=== PATIENT | male | born 1970 | race Caucasian/White ===

== ENCOUNTER 2023-06-04 17:06 | Emergency (ER) | payer OTHER, SELFPAY ==
[2023-06-04 17:10] VITALS: BP 110/78; PULSE 96; TEMP 36.4; O2SAT 96; BMI 27.3
--- NOTE | 2023-06-04 17:20 | ED_ITS ---
Documented by User: KRISTIN Sepulveda 06/04/23 18:12 HPI HPI - Neck Pain/Injury General Chief Complaint: Neck Pain/Injury Stated Complaint: NECK PAIN Time Seen by Provider: 06/04/23 17:07 Source: patient Mode of arrival: walk-in Limitations: no limitations History of Present Illness HPI Narrative: Patient is a 53-year-old male who presents to the emergency department for pain in the left side of the neck radiating to the left arm for the last week. He was seen in urgent care 4 days ago, no imaging was performed and he was discharged home with a Medrol Dosepak and Flexeril. [facility] report shows the patient takes 10 mg [place] 6 times a day. He reports no relief with any of these medications. He states pain is located in the left paraspinal area of the cervical spine, significantly worse with movement with pain radiation into the shoulder and arm. He denies any numbness or tingling. He has no direct injury or falls, he is unsure what may have precipitated this. He is a diabetic. Related Data Previous Rx's ?Medication ?Instructions ?Recorded ketorolac 10 mg tablet 10 mg PO TID PRN pain #10 tabs 06/04/23 orphenadrine citrate 100 mg 100 mg PO BID PRN muscle pain #14 06/04/23 tablet,extended release tabs Allergies Allergy/AdvReac Type Severity Reaction Status Date / Time No Known Drug Allergies Allergy Verified 06/04/23 17:09 Opioid HPI Opioid Management Most Recent Opioid Data: Last APR Pain Assessment 06/04/23 17:46 Review of Systems ROS Constitutional Denies: fever or chills Ears, nose, mouth, and throat Reports: neck pain; Denies: throat pain or nasal congestion Cardiovascular Denies: chest pain Respiratory Denies: shortness of breath or cough Gastrointestinal Denies: nausea or vomiting Musculoskeletal Reports: neck pain, extremity pain and limited range of motion; Denies: back pain, extremity swelling or joint pain Integumentary/Breast Denies: rash Neurological Denies: headache, numbness in extremities or weakness in extremities Endocrine Denies: excessive urination Hematologic/Lymphatic Denies: easy bruising or easy bleeding Exam Narrative Exam Narrative: Gen.: Awake, alert, in no distress Head: Normocephalic, atraumatic ENT: Moist mucous membranes, Tenderness of the left paraspinal area of the cervical spine with no midline posterior tenderness of the cervical spine. No obvious deformity, pain with range of motion noted. 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, normal biceps tendon strength in the arm Psych: Normal mood and affect Neuro: No focal neuro deficit Skin: Warm, dry, intact Constitutional Vital Signs, click to edit/add: Last Vital Signs Temp 97.6 F 06/04/23 17:10 Pulse 96 H 06/04/23 17:10 Resp 18 06/04/23 17:10 BP 110/78 06/04/23 17:10 Pulse Ox 96 06/04/23 17:10 O2 Del Method Room Air 06/04/23 17:10 Course Vital Signs Vital signs: Vital Signs Temperature 97.6 F 06/04/23 17:10 Pulse Rate 96 H 06/04/23 17:10 Respiratory Rate 18 06/04/23 17:10 Blood Pressure 110/78 06/04/23 17:10 Pulse Oximetry 96 06/04/23 17:10 Oxygen Delivery Method Room Air 06/04/23 17:10 Temperature 97.6 F 06/04/23 17:10 Pulse Rate 96 H 06/04/23 17:10 Respiratory Rate 18 06/04/23 17:10 Blood Pressure 110/78 06/04/23 17:10 Pulse Oximetry 96 06/04/23 17:10 Oxygen Delivery Method Room Air 06/04/23 17:10 MDM - Neck Pain/Injury MDM Narrative Medical decision making narrative: CT of the cervical spine shows multilevel degenerative changes with no acute process. Patient will be treated for cervical radiculopathy for home with Toradol and Norflex, finished Medrol Dosepak and follow-up with PCP. Return to the ER if symptoms change or worsen Medical Records Attestation: I reviewed the patient's medical records. Imaging Data ct cervical: Attestation: I have reviewed the pertinent imaging results. Radiologist's impression: ITS Impressions Cervical Spine CT 06/04/23 17:33 IMPRESSION: 1. Moderate spondylosis at C5-C6 which in combination with mild retrolisthesis at that level results in [id number] spinal canal narrowing as well as moderate to severe right-sided and mild left-sided foraminal narrowing. 2. No acute fracture. Electronically authenticated by: FREEDOM ARREOLA Date: 06/04/2023 17:58 Discharge Plan Discharge Stand Alone Forms: Portal Instructions Chief Complaint: Neck Pain/Injury Clinical Impression: Acute neck pain, Cervical radiculopathy Patient Disposition: Home, Self-Care Time of Disposition Decision: 18:11 Condition: Good Prescriptions / Home Meds: New ketorolac 10 mg tablet 10 mg PO TID PRN (Reason: pain) Qty: 10 0RF orphenadrine citrate 100 mg tablet extended release 100 mg PO BID PRN (Reason: muscle pain) Qty: 14 0RF Print Language: Austrian Instructions: Cervical Radiculopathy (ED), Acute Neck Pain (ED) Referrals: ANDREAS NI [Primary Care Provider] - 1 week Documented by User: Joe Martines 06/04/23 18:16 HPI HPI - Neck Pain/Injury General Chief Complaint: Neck Pain/Injury Stated Complaint: NECK PAIN Time Seen by Provider: 06/04/23 17:07 Related Data Previous Rx's ?Medication ?Instructions ?Recorded ketorolac 10 mg tablet 10 mg PO TID PRN pain #10 tabs 06/04/23 orphenadrine citrate 100 mg 100 mg PO BID PRN muscle pain #14 06/04/23 tablet,extended release tabs Allergies Allergy/AdvReac Type Severity Reaction Status Date / Time No Known Drug Allergies Allergy Verified 06/04/23 17:09 Opioid HPI Opioid Management Most Recent Opioid Data: Last APR Pain Assessment 06/04/23 17:46 Exam Constitutional Vital Signs, click to edit/add: Last Vital Signs Temp 97.6 F 06/04/23 17:10 Pulse 96 H 06/04/23 17:10 Resp 18 06/04/23 17:10 BP 110/78 06/04/23 17:10 Pulse Ox 96 06/04/23 17:10 O2 Del Method Room Air 06/04/23 17:10 Course Vital Signs Vital signs: Vital Signs Temperature 97.6 F 06/04/23 17:10 Pulse Rate 96 H 06/04/23 17:10 Respiratory Rate 18 06/04/23 17:10 Blood Pressure 110/78 06/04/23 17:10 Pulse Oximetry 96 06/04/23 17:10 Oxygen Delivery Method Room Air 06/04/23 17:10 Temperature 97.6 F 06/04/23 17:10 Pulse Rate 96 H 06/04/23 17:10 Respiratory Rate 18 06/04/23 17:10 Blood Pressure 110/78 06/04/23 17:10 Pulse Oximetry 96 06/04/23 17:10 Oxygen Delivery Method Room Air 06/04/23 17:10 MDM - Neck Pain/Injury MDM Narrative Medical decision making narrative: CT of the cervical spine shows multilevel degenerative changes with no acute process. Patient will be treated for cervical radiculopathy for home with Toradol and Norflex, finished Medrol Dosepak and follow-up with PCP. Return to the ER if symptoms change or worsen For this patient encounter I reviewed the mid-level provider?s documentation, medical decision-making and treatment plan, and I personally spent time with this patient. Shared APC visit, physician attestation: [id number]: The visit was performed by both a physician and an APC. I performed all aspects of MDM as documented. - DO [facility] Data ct cervical: Radiologist's impression: ITS Impressions Cervical Spine CT 06/04/23 17:33 IMPRESSION: 1. Moderate spondylosis at C5-C6 which in combination with mild retrolisthesis at that level results in [id number] spinal canal narrowing as well as moderate to severe right-sided and mild left-sided foraminal narrowing. 2. No acute fracture. Electronically authenticated by: FREEDOM ARREOLA Date: 06/04/2023 17:58 Discharge Plan Discharge Stand Alone Forms: Portal Instructions Chief Complaint: Neck Pain/Injury Clinical Impression: Acute neck pain, Cervical radiculopathy Patient Disposition: Home, Self-Care Time of Disposition Decision: 18:11 Condition: Good Prescriptions / Home Meds: New ketorolac 10 mg tablet 10 mg PO TID PRN (Reason: pain) Qty: 10 0RF orphenadrine citrate 100 mg tablet extended release 100 mg PO BID PRN (Reason: muscle pain) Qty: 14 0RF Print Language: Austrian Instructions: Cervical Radiculopathy (ED), Acute Neck Pain (ED) Referrals: ANDREAS NI [Primary Care Provider] - 1 week
--- NOTE | 2023-06-04 17:33 | CT_ITS ---
[address] [address] Patient Name: CAROLINA CEDEÑO MRN: [id number] date: 1970 Sex: M Assigned Patient Location: ER Current Patient Location: Accession/Order Number: [id number] Exam Date: 06/04/2023 17:30 Report Date: 06/04/2023 17:58 At the request of: CAROLINE LOO Procedure: CT cervical spine wo con EXAM: CT cervical spine wo con; [id number] REASON FOR EXAM: cervical radiculopathy COMPARISON: None. TECHNIQUE: Helical CT images of the cervical spine were obtained without contrast. Multiplanar reformats generated at the scanner. Dose reduction technique used: Automated exposure control and/or adjustment of the mA and/or kV according to patient size and/or use of iterative reconstruction technique. FINDINGS: Note: Compared with contrast-enhanced CT exams, noncontrast images are less sensitive for detection of some types of vascular, solid organ, and soft tissue pathology. Alignment: Mild retrolisthesis of C5 on C6. Non degenerative osseous findings: -No suspicious osseous lesion. -No acute fracture. Cervical spine degenerative changes: C2-C3: -Disc: No significant height loss. -Osseous endplate: Osteophytic lipping -Facets: No significant arthropathy. -Osseous spinal canal narrowing: None. -Osseous neuroforaminal narrowing: None. C3-C4: -Disc: No significant height loss. -Osseous endplate: Osteophytic lipping. -Facets: Minimal bilateral arthropathy. -Osseous spinal canal narrowing: None. -Osseous neuroforaminal narrowing: None. C4-C5: -Disc: No significant height loss. -Osseous endplate: Osteophytic lipping. -Facets: Minimal left-sided arthropathy. -Osseous spinal canal narrowing: None. -Osseous neuroforaminal narrowing: None. C5-C6: -Disc: Mild disc height loss with a medium-sized posterior disc bulge -Osseous endplate: Moderate osteophytosis. -Facets: No osseous degenerative changes. -Spinal canal narrowing: [id number] -Osseous neuroforaminal narrowing: Moderate/severe on the right and mild on the left. C6-C7: -Disc: No significant height loss. -Osseous endplate: Mild osteophytosis -Facets: No osseous degenerative changes. -Osseous spinal canal narrowing: None. -Osseous neuroforaminal narrowing: None. C7-T1: -Disc: No significant height loss. -Osseous endplate: No osteophytosis. -Facets: No osseous degenerative changes. -Osseous spinal canal narrowing: None. -Osseous neuroforaminal narrowing: None. Paraspinous soft tissues: No significant abnormality. Visualized lung apices: Clear. CT/CT cervical spine wo con IMPRESSION: 1. Moderate spondylosis at C5-C6 which in combination with mild retrolisthesis at that level results in ipcv-gk-oykholoc spinal canal narrowing as well as moderate to severe right-sided and mild left-sided foraminal narrowing. 2. No acute fracture. Electronically authenticated by: FREEDOM ARREOLA Date: 06/04/2023 17:58
[2023-06-04] MEDS: ORPHENADRINE 60 MG/ 2 ML VIAL IM (17:46)
[2023-06-04] MEDS: KETOROLAC TROMETHAMINE 60 MG/2 ML VIAL IM (17:46)
[2023-06-04] MEDS: HYDROCODONE/ACET 5-325 MG TABLET 1 TAB PO (17:46)
== END 2023-06-04 18:27 | disposition home or self-care (01) ==
PROVIDERS: Emergency Provider Emergency Medicine; PCP Internal Medicine
DX: M54.12 Radiculopathy, cervical region (principal); M54.2 Cervicalgia
CPT/HCPCS: 72125; 96372; 99284

== ENCOUNTER 2023-06-06 17:49 | Emergency (ER) | payer OTHER, SELFPAY ==
[2023-06-06 17:55] VITALS: BP 128/91; PULSE 116; TEMP 36.8; O2SAT 96; BMI 27.3
[2023-06-06] MEDS: KETOROLAC TROMETHAMINE 30 MG/ML VIAL IM (18:34)
[2023-06-06] MEDS: ORPHENADRINE 60 MG/ 2 ML VIAL IM (18:37)
[2023-06-06] MEDS: HYDROCODONE/ACET 5-325 MG TABLET 1 TAB PO (18:38)
--- NOTE | 2023-06-06 21:47 | ED_ITS ---
HPI HPI - General Adult General Chief complaint: Neck Pain/Injury Stated complaint: Neck Pain Time Seen by Provider: 06/06/23 18:12 Source: patient Mode of arrival: walk-in Limitations: no limitations History of Present Illness HPI narrative: Patient is a 59-year-old male who is coming in complaining of ongoing pain since last . Patient had no injury last Sunday. Patient says that he woke up last , any pain to left side of his neck and radiation down into left arm. Patient had a CT of the cervical spine at that time that showed arthritic changes, spondylolysis, retrolisthesis, no acute findings and CT cervical spine breathing. Patient was educated on using ice, stretching and follow-up with PCP. Patient has follow-up with Dr. An, patient was referred to physical therapy and also to Dr. Fried from neurosurgery for possible MRI if needed. Patient is in chronic pain for other reasons. Patient has no significant headache. Patient has been using Flexeril and Lorcet a home for pain relief. Patient went to [facility] last evening for similar symptoms, was given 2 shots and discharge after CT was reviewed by the Emergency Room physician from last . Patient is coming back to the Emergency Room for a 3rd time secondary to pain. He is alternating ice and heat. He is doing no cervical stretching at home. Patient was due to go to physical therapy today and did not because he was sleeping. Patient is doing nothing to help himself at home with his pain, cervical spasm and torticollis. This education was done multiple times at bedside with patient and his . 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 . All systems are negative except as noted/marked. All systems reviewed and otherwise negative. . Nurses note and vital signs reviewed and patient is not hypoxic. General: The patient appears well and in Moderate distress secondary to pain. Patient is resting uncomfortably on cart. Patient is not toxic, lethargic, or listless Skin: Warm, dry, no pallor noted. There is no rash noted. No petechiae, purpura. Head: Normocephalic, atraumatic; Patient has no new midline cervical tenderness to palpation. Patient does have moderate left paracervical tenderness to palpation, patient has signs of left torticollis. Patient has no meningeal signs or symptoms. Patient has no nuchal rigidity. Eye: Normal conjunctiva, no drainage, EOMI. PERRL Ears, Nose, Mouth, and Throat: oral mucosa is moist. Nares patent. Mouth without vesicles. Patient has very poor dentition, none secondary signs of dental infe ction or intraoral pathology. Cardiovascular: Regular Rate and Rhythm, no murmur, gallop, rub Respiratory: Patient is in no distress, no accessory muscle use, lungs are clear to auscultation, no wheezing, rales or rhonchi Back: non-tender, no CVA tenderness bilaterally to percussion. No CT LS midline pain GI: soft, no tenderness Musculoskeletal: Patient has full range of motion of all of the extremities, no motor, sensory, or focal neurological deficits; Patient has full range of motion and movements of bilateral upper extremities, patient has full opposition of all fingers to his left hand, patient has no acute sensory or motor deficits to his left hand left upper extremity. Patient states he does have radiating cervical pain down C5 into his left arm, no paresthesias, no strokelike signs or symptoms. Neurological: A&O x3, normal speech Psychiatric: Cooperative Related Data Home Medications ?Medication ?Instructions ?Recorded ?Confirmed cyclobenzaprine 10 mg tablet 10 mg PO DAILY 06/06/23 06/06/23 dapagliflozin propanediol 5 mg 5 mg PO DAILY 06/06/23 06/06/23 tablet (Farxiga) hydrocodone 10 mg-acetaminophen 2 tab PO Q6H 06/06/23 06/06/23 325 mg tablet insulin degludec 100 unit/mL (3 20 unit subcut BEDTIME 06/06/23 06/06/23 mL) subcutaneous pen (Tresiba FlexTouch U-100 insulin) meloxicam 15 mg tablet 15 mg PO DAILY 06/06/23 06/06/23 methylprednisolone 4 mg tablets in 4 mg PO DAILY 06/06/23 06/06/23 a dose pack Previous Rx's ?Medication ?Instructions ?Recorded ketorolac 10 mg tablet 10 mg PO TID PRN pain #10 tabs 06/04/23 orphenadrine citrate 100 mg 100 mg PO BID PRN muscle pain #14 06/04/23 tablet,extended release tabs hydrocodone 5 mg-acetaminophen 325 1 tab PO Q4H PRN pain #10 tabs 06/06/23 mg tablet methocarbamol 500 mg tablet 500 mg PO Q8H PRN muscle pain #10 06/06/23 tabs Allergies Allergy/AdvReac Type Severity Reaction Status Date / Time No Known Drug Allergies Allergy Verified 06/04/23 17:09 Opioid HPI Opioid Management Most Recent Opioid Data: Last Pain Scale 2 06/06/23 18:38 Last MAR Pain Assessment 06/06/23 18:38 Exam Constitutional Vital Signs, click to edit/add: Last Vital Signs Temp 98.2 F 06/06/23 17:55 Pulse 116 H 06/06/23 17:55 Resp 20 06/06/23 17:55 BP 128/91 06/06/23 17:55 Pulse Ox 96 06/06/23 17:55 O2 Del Method Room Air 06/06/23 17:55 Course Vital Signs Vital signs: Vital Signs Temperature 98.2 F 06/06/23 17:55 Pulse Rate 116 H 06/06/23 17:55 Respiratory Rate 20 06/06/23 17:55 Blood Pressure 128/91 06/06/23 17:55 Pulse Oximetry 96 06/06/23 17:55 Oxygen Delivery Method Room Air 06/06/23 17:55 Temperature 98.2 F 06/06/23 17:55 Pulse Rate 116 H 06/06/23 17:55 Respiratory Rate 20 06/06/23 17:55 Blood Pressure 128/91 06/06/23 17:55 Pulse Oximetry 96 06/06/23 17:55 Oxygen Delivery Method Room Air 06/06/23 17:55 Medical Decision Making MDM Narrative Medical decision making narrative: 10-15min Was spent; 3 different times was spent on education on using ice and no heat, patient was Shown 8 different exercises that he can do at home 3-4 times a day to help with cervical stretching and torticollis. A copy of patient's CT report of the cervical spine was given to the patient and educated on the impressions of the CT findings. Patient was given Toradol, Norflex and one Rembrandt in the Emergency Room. Patient was given a short prescription for Rembrandt and Robaxin, because he is run out of his pain medication muscle relaxers at home. Patient fully understands that if he does not ice or stretching, he will not Better. Patient understands taken responsibility of making his physical therapy appointments. Education with and patient was in at bedside multiple times. Patient was very thankful for help, time spent on education, patient is right-hand at discharge and a significant thank you very much for my time and explain things very easily. Discharge Plan Discharge Stand Alone Forms: Portal Instructions Chief Complaint: Neck Pain/Injury Clinical Impression: Chronic pain, Cervical radiculopathy, Left torticollis Patient Disposition: Home, Self-Care Time of Disposition Decision: 18:51 Condition: Fair Prescriptions / Home Meds: New methocarbamol 500 mg tablet 500 mg PO Q8H PRN (Reason: muscle pain) Qty: 10 0RF hydrocodone-acetaminophen 5-325 mg tablet 1 tab PO Q4H PRN (Reason: pain) Qty: 10 0RF No Action cyclobenzaprine 10 mg tablet 10 mg PO DAILY dapagliflozin propanediol [Farxiga] 5 mg tablet 5 mg PO DAILY hydrocodone-acetaminophen 10-325 mg tablet 2 tab PO Q6H insulin degludec [Tresiba FlexTouch U-100] 100 unit/mL (3 mL) insulin pen 20 unit SUBCUT BEDTIME meloxicam 15 mg tablet 15 mg PO DAILY methylprednisolone 4 mg tablets,dose pack 4 mg PO DAILY ketorolac 10 mg tablet 10 mg PO TID PRN (Reason: pain) Qty: 10 0RF orphenadrine citrate 100 mg tablet extended release 100 mg PO BID PRN (Reason: muscle pain) Qty: 14 0RF Print Language: German Instructions: Spasmodic Torticollis (ED), Cervical Sprain (ED), Cervical Radiculopathy (ED), Neck Pain (ED) Additional Instructions: Do not use any more heat. Use ice 20 minutes on, 20 minutes off as discussed. Do cervical stretching exercises, 3 sets of 10, 8 different exercises that we discussed 3-4 times a day to help with stretching. Follow-up with PCP and Dr. Fried and your PCP Dr. Mcadams. Start doing cervical stretching exercises tonight along with ice. A few days of pain medication muscle laxer were given, but at length we discussed ice and stretching will help along with going to physical therapy that has been ordered for you already. Referrals: ANDREAS AN [Primary Care Provider] - 1 week Discharge Date/Time: 06/06/23 19:02
--- NOTE | 2023-06-07 09:58 | PC.NURSE ---
[facility] calls ER and reports pt is trying to fill a Rx for [place] and he had just filled something stronger and has a 30 day supply that should still be available. He also filled muscle relaxer and narcotic at [facility] in [place] and then presented with these [address] Jiménez to fill. Pharmacist and this teletypewriter operator feel that for the patient safety, these new rx's shouldn't be filled at this time. We both feel appropriate to hold rx's and fill when he runs out of the first or another option would be to have him return the previous prescription pills if they weren't working. Once old pills were returned then the Rx could be filled.
== END 2023-06-06 19:02 | disposition home or self-care (01) ==
PROVIDERS: Emergency Provider Emergency Medicine; PCP Internal Medicine
DX: M54.12 Radiculopathy, cervical region (principal); M43.6 Torticollis; G89.29 Other chronic pain; Z79.4 Long term (current) use of insulin; Z79.899 Other long term (current) drug therapy
CPT/HCPCS: 96372; 99284

== ENCOUNTER 2023-06-08 10:16 | Emergency (ER) | payer OTHER, SELFPAY ==
[2023-06-08 10:19] VITALS: BP 136/96; PULSE 107; TEMP 37.6; O2SAT 98; BMI 27.0
--- NOTE | 2023-06-08 10:51 | ED.NECK1 ---
HPI HPI - Neck Pain/Injury General Chief Complaint: Neck Pain/Injury Stated Complaint: NECK PAIN Time Seen by Provider: 06/08/23 10:25 Source: patient Mode of arrival: Wheelchair History of Present Illness HPI Narrative: 53-year-old male presents for neck pain. This is an ongoing issue for him and he has had several emergency department visits here in another hospital as well as his PCP and he is being scheduled with a neurologist. It is severe pain. He was prescribed 180 [place] tablets on May 23 and he states he has run out of them. No new symptoms. No fever or numbness or weakness in his extremities. Related Data Home Medications ?Medication ?Instructions ?Recorded ?Confirmed dapagliflozin propanediol 5 mg 5 mg PO DAILY 06/06/23 06/08/23 tablet (Farxiga) hydrocodone 10 mg-acetaminophen 2 tab PO Q6H 06/06/23 06/08/23 325 mg tablet insulin degludec 100 unit/mL (3 20 unit subcut BEDTIME 06/06/23 06/08/23 mL) subcutaneous pen (Tresiba FlexTouch U-100 insulin) meloxicam 15 mg tablet 15 mg PO DAILY 06/06/23 06/08/23 pregabalin 75 mg capsule 75 mg PO BID 06/08/23 06/08/23 tizanidine 4 mg tablet 4 mg PO Q6H PRN muscle spasticity 06/08/23 06/08/23 Previous Rx's ?Medication ?Instructions ?Recorded orphenadrine citrate 100 mg 100 mg PO BID PRN muscle pain #14 06/04/23 tablet,extended release tabs hydrocodone 5 mg-acetaminophen 325 1 tab PO Q4H PRN pain #10 tabs 06/06/23 mg tablet methocarbamol 500 mg tablet 500 mg PO Q8H PRN muscle pain #10 06/06/23 tabs etodolac 400 mg tablet 400 mg PO Q8H PRN pain #20 tabs 06/08/23 prednisone 10 mg tablet See Rx Instructions .Route 06/08/23 .COMPLEX #30 tabs Allergies Allergy/AdvReac Type Severity Reaction Status Date / Time No Known Drug Allergies Allergy Verified 06/04/23 17:09 Opioid HPI Opioid Management Most Recent Opioid Data: Last Pain Scale 2 06/06/23 18:38 Last MAR Pain Assessment 06/06/23 18:38 Review of Systems ROS Narrative A ten point review of systems is negative except as noted above. Exam Narrative Exam Narrative: Nurses note and vital signs reviewed and patient is not hypoxic. General: The patient appears in no apparent distress. Patient is laying on his left side on the examination cart Skin: Warm, dry, no pallor noted. There is no rash noted. Head: Normocephalic, atraumatic Eye: Normal conjunctiva, no drainage Ears, Nose, Mouth, and Throat: oral mucosa is moist. Nares patent. Neck has no mass or swelling Cardiovascular: Regular Rate and Rhythm Respiratory: Patient is in no distress, no accessory muscle use, lungs are clear to auscultation, no wheezing, rales or rhonchi Back: non-tender GI: Soft and nontender Musculoskeletal: The patient has no evidence of calf tenderness, no pitting edema, symmetrical pulses noted bilaterally Neurological: A&O, normal speech, upper and lower extremity strength intact Psychiatric: Cooperative Constitutional Vital Signs, click to edit/add: Last Vital Signs Temp 99.7 F 06/08/23 10:19 Pulse 107 H 06/08/23 10:19 Resp 20 06/08/23 10:19 BP 136/96 H 06/08/23 10:19 Pulse Ox 98 06/08/23 10:19 O2 Del Method Room Air 06/08/23 10:19 Course Vital Signs Vital signs: Vital Signs Temperature 99.7 F 06/08/23 10:19 Pulse Rate 107 H 06/08/23 10:19 Respiratory Rate 20 06/08/23 10:19 Blood Pressure 136/96 H 06/08/23 10:19 Pulse Oximetry 98 06/08/23 10:19 Oxygen Delivery Method Room Air 06/08/23 10:19 Temperature 99.7 F 06/08/23 10:19 Pulse Rate 107 H 06/08/23 10:19 Respiratory Rate 20 06/08/23 10:19 Blood Pressure 136/96 H 06/08/23 10:19 Pulse Oximetry 98 06/08/23 10:19 Oxygen Delivery Method Room Air 06/08/23 10:19 MDM - Neck Pain/Injury MDM Narrative Medical decision making narrative: I have reviewed his very recent CT of the C-spine which showed cervical spondylosis. He appears to have run out of his [place], he was prescribed 180 of those tablets approximately 15 days ago. He is given IM Toradol and Norflex here and prescribed etodolac and prednisone. The importance of follow-up with neurology was discussed thoroughly. Differential Diagnosis Differential diagnosis: Likely disc disorder of cervical region, cervical radiculopathy, torticollis, cervical spondylosis and strain of neck muscle Discharge Plan Discharge Stand Alone Forms: Portal Instructions Chief Complaint: Neck Pain/Injury Clinical Impression: Cervical spondylosis Patient Disposition: Home, Self-Care Time of Disposition Decision: 10:49 Condition: Good Mode of Transportation: Private Vehicle Prescriptions / Home Meds: New etodolac 400 mg tablet 400 mg PO Q8H PRN (Reason: pain) Qty: 20 0RF prednisone 10 mg tablet See Rx Instructions .ROUTE .COMPLEX Qty: 30 0RF Rx Instructions: 4 by mouth daily for three days then 3 by mouth daily for three days then 2 by mouth daily for three days then 1 by mouth daily for three days No Action dapagliflozin propanediol [Farxiga] 5 mg tablet 5 mg PO DAILY hydrocodone-acetaminophen 10-325 mg tablet 2 tab PO Q6H insulin degludec [Tresiba FlexTouch U-100] 100 unit/mL (3 mL) insulin pen 20 unit SUBCUT BEDTIME meloxicam 15 mg tablet 15 mg PO DAILY methocarbamol 500 mg tablet 500 mg PO Q8H PRN (Reason: muscle pain) Qty: 10 0RF hydrocodone-acetaminophen 5-325 mg tablet 1 tab PO Q4H PRN (Reason: pain) Qty: 10 0RF pregabalin 75 mg capsule 75 mg PO BID tizanidine 4 mg tablet 4 mg PO Q6H PRN (Reason: muscle spasticity) orphenadrine citrate 100 mg tablet extended release 100 mg PO BID PRN (Reason: muscle pain) Qty: 14 0RF Print Language: Bruneian Instructions: Chronic Neck Pain (DC) Additional Instructions: Follow-up with your PCP and neurologist Referrals: ANDREAS NI [Primary Care Provider] - 1 week
[2023-06-08] MEDS: KETOROLAC TROMETHAMINE 60 MG/2 ML VIAL IM (10:59)
[2023-06-08] MEDS: ORPHENADRINE 60 MG/ 2 ML VIAL IM (10:59)
== END 2023-06-08 11:08 | disposition home or self-care (01) ==
PROVIDERS: Emergency Provider Emergency Medicine; PCP Internal Medicine
DX: M47.812 Spondylosis without myelopathy or radiculopathy, cervical region (principal); Z79.899 Other long term (current) drug therapy; Z79.4 Long term (current) use of insulin
CPT/HCPCS: 96372; 99284

== ENCOUNTER 2023-09-19 10:48 | Emergency (ER) | payer OTHER, SELFPAY ==
[2023-09-19] VITALS (21 sets, daily range): BP systolic 116–151; BP diastolic 77–106; PULSE 97–138; TEMP 37; O2SAT 98–100; BMI 22.4
--- NOTE | 2023-09-19 10:54 | ECG_ITS ---
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
[2023-09-19] MEDS: 0.9 % SODIUM CHLORIDE 1,000 ML 1000 ML IV ×2 (11:08→12:32)
--- NOTE | 2023-09-19 11:09 | ED_ITS ---
HPI HPI - General Adult General Chief complaint: Weakness Stated complaint: WEAKNESS, PHYSICIAN REFERRAL Time Seen by Provider: 09/19/23 10:53 Source: patient Mode of arrival: walk-in Limitations: no limitations History of Present Illness HPI narrative: The patient is coming to the ER after he was already evaluated by his primary care doctor and sent over to us for evaluation, patient already have a history of MRSA infection of the left knee and apparently at that time he was treated fully for 16 weeks But 4 weeks ago he had undergone right knee replacement and last night he started having fever at night Patient was evaluated by his primary care doctor he was found to have a temperature of 102 and heart rate of 150 The patient denies any coughing , any shortness of breath any other complaints of abdominal pain nausea vomiting or any burning with urination Related Data Home Medications ?Medication ?Instructions ?Recorded ?Confirmed dapagliflozin propanediol 5 mg 5 mg PO DAILY 06/06/23 09/19/23 tablet (Farxiga) hydrocodone 10 mg-acetaminophen 2 tab PO Q6H 06/06/23 09/19/23 325 mg tablet aspirin 81 mg tablet,delayed 81 mg PO BID 09/19/23 09/19/23 release celecoxib 200 mg capsule 200 mg PO DAILY 09/19/23 09/19/23 insulin aspart U-100 100 unit/mL 10 unit subcut TID 09/19/23 09/19/23 (3 mL) subcutaneous pen (Novolog FlexPen U-100 Insulin aspart) omega-3 acid ethyl esters 1 gram 1 cap PO DAILY 09/19/23 09/19/23 capsule pregabalin 150 mg capsule 150 mg PO BID 09/19/23 09/19/23 Previous Rx's ?Medication ?Instructions ?Recorded hydrocodone 5 mg-acetaminophen 325 1 tab PO Q4H PRN pain #10 tabs 06/06/23 mg tablet etodolac 400 mg tablet 400 mg PO Q8H PRN pain #20 tabs 06/08/23 Allergies Allergy/AdvReac Type Severity Reaction Status Date / Time No Known Drug Allergies Allergy Verified 06/04/23 17:09 Opioid HPI Opioid Management Most Recent Opioid Data: Last Pain Scale 2 06/06/23 18:38 Review of Systems ROS Status of ROS 10 or more systems reviewed and unremark able except as noted in history and below Exam Narrative Exam Narrative: Nurses notes and vital signs reviewed and patient is not hypoxic. General: Well-appearing and in no apparent distress. Skin: Warm, dry, no pallor noted. No rash. Head: Normocephalic, atraumatic. Neck: Supple, non-tender. Eye: Pupils are equal, round and EOMI. No scleral icterus. Ears, Nose, Mouth, and Throat: TM are clear, no nasal mucosal hypertrophy. Oral mucosa is moist, no posterior oropharynx erythema, uvula is mid-line Cardiovascular: Regular Rate and Rhythm without murmur, gallop or rub. Respiratory: No accessory muscle use or respiratory distress. Lungs are clear to auscultation, no wheezing, rales or rhonchi Chest Wall: no tenderness Back: No midline thoracic or lumbar vertebral tenderness. No CVA tenderness Musculoskeletal: The patient have a edema of the right knee and the wound that healing for the right knee replacement, with no significant redness noted the only mild erythema noted at the distal end of the wound mostly laterally to the proximal tibia The patient does not have any fluctuation but he does have some effusion in the right knee there is no pocketing and the patient does not have any dehiscence of the wound that is observed GI: Abdomen is soft, non-distended. Normal bowel sounds. No masses appreciated. No tenderness to palpation. No rebound, guarding, or rigidity noted. Neurological: A&O x4. No cranial nerve dysfunction observed. No truncal ataxia. Moves all extremities. Sensation intact. Psychiatric: Cooperative and interactive. Normal mood and affect. Constitutional Vital Signs, click to edit/add: Last Vital Signs Temp 98.6 F 09/19/23 10:55 Pulse 133 H 09/19/23 10:55 Resp 09/19/23 10:55 BP 144/98 H 09/19/23 10:55 Pulse Ox 100 09/19/23 10:55 O2 Del Method Room Air 09/19/23 10:55 Course Vital Signs Vital signs: Vital Signs Temperature 98.6 F 09/19/23 10:55 Pulse Rate 133 H 09/19/23 10:55 Respiratory Rate 09/19/23 10:55 Blood Pressure 144/98 H 09/19/23 10:55 Pulse Oximetry 100 09/19/23 10:55 Oxygen Delivery Method Room Air 09/19/23 10:55 Temperature 98.6 F 09/19/23 10:55 Pulse Rate 133 H 09/19/23 10:55 Respiratory Rate 20 09/19/23 10:55 Blood Pressure 144/98 H 09/19/23 10:55 Pulse Oximetry 100 09/19/23 10:55 Oxygen Delivery Method Room Air 09/19/23 10:55 Medical Decision Making MDM Narrative Medical decision making narrative: EKG in the ER showing sinus tachycardia with a heart rate of [address] elevation or depression Patient was started on arrival of possible sepsis protocol with IV fluids as well as blood culture obtained and CBC and chemistry The patient lactic acid is elevated which is mostly secondary to sepsis Blood culture was obtained and the patient was started back on Zosyn X-ray of the right knee is obtained and pending And the patient CBC shows elevated neutrophil with no leukocytosis Patient provided with morphine 2 mg IV Mostly the patient will be transferred back to [facility] for further evaluation of possible infection Lab Data Labs: Lab Results 09/19/23 Range/Units 11:05 WBC 9.0 (4.0-11.0) 10^3/uL RBC 5.73 (4.70-6.10) 10^6/uL Hgb 15.1 (14.0-18.0) g/dL Hct 46.8 (42.0-54.0) % MCV 81.7 (80.0-94.0) fL MCH 26.4 (25.9-34.0) pg MCHC 32.3 (29.9-35.2) g/dL RDW 14.4 (11.0-15.0) % Plt Count 230 (150-450) 10^3/uL MPV 10.8 (9.5-13.5) fL Neut % (Auto) 83.1 H (43.0-75.0) % Lymph % (Auto) 8.7 L (20.5-60.0) % [place] % (Auto) 7.0 (1.7-12.0) % Eos % (Auto) 0.4 L (0.9-7.0) % Baso % (Auto) 0.4 (0.2-2.0) % Neut # (Auto) 7.5 H (1.4-6.5) 10^3/uL Lymph # (Auto) 0.8 L (1.2-3.8) 10^3/uL [place] # (Auto) 0.6 (0.3-0.8) 10^3/uL Eos # (Auto) 0.0 (0.0-0.7) 10^3/uL Baso # (Auto) 0.0 (0.0-0.1) 10^3/uL Abs Immat Gran (auto) 0.04 H (0.00-0.03) 10^3/uL Imm/Tot Granulo (auto) 0.4 (0.0-0.5) % Sodium 129 L (136-145) mmol/L Potassium 4.0 (3.5-5.1) mmol/L Chloride 91 L (98-107) mmol/L Carbon Dioxide 23.1 (21.0-32.0) mmol/L Anion Gap 18.9 BUN 11.0 (7.0-18.0) mg/dL Creatinine 1.20 (0.70-1.30) mg/dL Est GFR ( Amer) >60 (>=60) Est GFR (Non-Af Amer) >60 (>=60) BUN/Creatinine Ratio 9.2 Glucose 306 H (74-106) mg/dL Lactate 5.4 H* (0.4-2.0) mmol/L Calcium 9.7 (8.5-10.1) mg/dL Total Bilirubin 0.6 (0.2-1.0) mg/dL AST 20 (15-37) U/L ALT 21 (16-63) U/L Alkaline Phosphatase 125 H (46-116) U/L Total Protein 9.4 H (6.4-8.2) g/dL Albumin 3.6 (3.4-5.0) g/dL Globulin 5.8 g/dL Albumin/Globulin Ratio 0.6 Discharge Plan Discharge Patient Disposition: Still a Patient
[2023-09-19 11:25] LABS: Basophils Percent Auto 0.4 % (0.2-2.0); Eosinophils Percent Auto 0.4 % (0.9-7.0); Hematocrit 46.8 % (42.0-54.0); Hemoglobin 15.1 g/dL (14.0-18.0); Immature Granulocytes Abs Auto 0.04 10^3/uL (0.00-0.03); Immature Granulocytes Pct Auto 0.4 % (0.0-0.5); Lymphocytes Absolute Auto 0.8 10^3/uL (1.2-3.8); Lymphocytes Percent Auto 8.7 % (20.5-60.0); Mean Corpuscular HGB Conc 32.3 g/dL (29.9-35.2); Mean Corpuscular Hemoglobin 26.4 pg (25.9-34.0); Mean Corpuscular Volume 81.7 fL (80.0-94.0); Mean Platelet Volume 10.8 fL (9.5-13.5); Monocytes Absolute Auto 0.6 10^3/uL (0.3-0.8); Neutrophils Absolute Auto 7.5 10^3/uL (1.4-6.5); Neutrophils Percent Auto 83.1 % (43.0-75.0); Platelet Count 230 10^3/uL (150-450); Red Blood Count 5.73 10^6/uL (4.70-6.10); Red Cell Distribution Width 14.4 % (11.0-15.0)
[2023-09-19 11:31] LABS: Alanine Aminotransferase 21 U/L (16-63); Albumin Globulin Ratio 0.6; Albumin Level 3.6 g/dL (3.4-5.0); Alkaline Phosphatase 125 U/L (46-116); Anion Gap 18.9; Aspartate Amino Transferase 20 U/L (15-37); BUN Creatinine Ratio 9.2; Bilirubin Total 0.6 mg/dL (0.2-1.0); Calcium 9.7 mg/dL (8.5-10.1); Carbon Dioxide 23.1 mmol/L (21.0-32.0); Chloride 91 mmol/L (98-107); Estimated GFR (African America >60 (>=60); Estimated GFR (Non-African Ame >60 (>=60); Globulin 5.8 g/dL; Glucose 306 mg/dL (74-106); Sodium 129 mmol/L (136-145); Total Protein 9.4 g/dL (6.4-8.2)
[2023-09-19 11:39] LABS: Lactate/Lactic Acid 5.4 mmol/L (0.4-2.0)
--- NOTE | 2023-09-19 11:39 | XR_ITS ---
[address] [address] Patient Name: CAROLINA CEDEÑO MRN: [id number] date: 1970 Sex: M Assigned Patient Location: ER Current Patient Location: ED.MAIN Accession/Order Number: [id number] Exam Date: 09/19/2023 12:10 Report Date: 09/19/2023 12:31 At the request of: CLIVE HANCOCK Procedure: XR knee RT 3V PROCEDURE: XR knee RT 3V COMPARISON: None. HISTORY: infection concern FINDINGS: BONES:Total knee arthroplasty. No acute fracture, dislocation or mechanical failure. SOFT TISSUES:Negative. No visible soft tissue swelling. EFFUSION:Joint effusion OTHER: Negative. XR/XR knee RT 3V IMPRESSION: No acute fracture or mechanical failure Joint effusion Electronically authenticated by: SHAKIR GRIFFIN Date: 09/19/2023 12:31
[2023-09-19 11:46] LABS: INR 1.11; Prothrombin Time 11.6 sec (9.0-11.6)
[2023-09-19] MEDS: PIPERACILLIN SODIUM/TAZOBACTAM 4.5 GM in 0.9 % SODIUM CHLORIDE 50 ML IV (11:49)
[2023-09-19] MEDS: MORPHINE SULFATE 2 MG/ML SYRINGE IV (11:49)
[2023-09-19 12:29] LABS: Internal Control Within Normal Limits; SARS-CoV-2 Ag NEGATIVE (NEGATIVE)
[2023-09-19] MEDS: HYDROMORPHONE HCL 0.5 MG/0.5 ML SYRINGE IV (12:35)
[2023-09-19] MEDS: VANCOMYCIN HCL 1,000 MG in 0.9 % SODIUM CHLORIDE 250 ML 250 MG IV (12:35)
--- NOTE | 2023-09-19 12:54 | PC.NURSE ---
Dr Reis at patient's bedside informing him of transfer dt infection, sepsis. Son also at bedside. Pt requesting urinal. Denies any other needs
[2023-09-19] MEDS: HYDROMORPHONE HCL 1 MG/ML CARTRIDGE IV (13:27)
[2023-09-19] MEDS: 0.9 % SODIUM CHLORIDE 1,000 ML 500 ML IV (13:27)
[2023-09-19 14:53] LABS: Lactate/Lactic Acid 1.4 mmol/L (0.4-2.0)
== END 2023-09-19 15:20 | disposition short-term general hospital (02) ==
PROVIDERS: Emergency Provider Emergency Medicine; PCP Internal Medicine
DX: T84.53XA Infection and inflammatory reaction due to internal right knee prosthesis, initial encounter (principal); M00.9 Pyogenic arthritis, unspecified; E87.20 Acidosis, unspecified; Z86.14 Personal history of Methicillin resistant Staphylococcus aureus infection
CPT/HCPCS: 36415; 73562; 80053; 83605; 85025; 85610; 87040; 87811; 93005; 96365; 96367; 96375; 96376; 99285; J1170; J2270; J2543; J3370

== ENCOUNTER 2024-06-26 05:23 | Emergency (ER) | payer OTHER, SELFPAY ==
[2024-06-26] VITALS (22 sets, daily range): BP systolic 109–131; BP diastolic 76–87; PULSE 89; TEMP 37.1; O2SAT 95–99; BMI 25.1
--- NOTE | 2024-06-26 05:51 | PC.NURSE ---
complains of chronic right knee pain but during work this right knee pain increased. this patient states a year ago my knee went septic this patient shows no signs of distress
--- NOTE | 2024-06-26 05:58 | ED.GENADUL1 ---
HPI HPI - General Adult General Chief complaint: Weakness Stated complaint: LOWER EXTREMITY PAIN Time Seen by Provider: 06/26/24 05:48 Source: patient Mode of arrival: ambulance Limitations: no limitations History of Present Illness HPI narrative: right knee pain and weakness. IDDM. Describes multiple surgeries including antibiotic impregnated spacers. Last year the joint was septic. He has constant pain of the joint. left work this AM because of the pain. Also feels weak and concern he may have an infection. No fever or nausea or chills. Right knee is always enlarged. 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 states he got off due to the pain and weakness and 911 was called to bring him here. Related Data Home Medications ?Medication ?Instructions ?Recorded ?Confirmed aspirin 81 mg tablet,delayed 81 mg PO BID 09/19/23 09/19/23 release celecoxib 200 mg capsule 200 mg PO DAILY 09/19/23 09/19/23 dapagliflozin propanediol 10 mg 10 mg PO DAILY 09/19/23 09/19/23 tablet (Farxiga) insulin aspart U-100 100 unit/mL 10 unit subcut TIDWM 09/19/23 09/19/23 (3 mL) subcutaneous pen (Novolog FlexPen U-100 Insulin aspart) insulin glargine 100 unit/mL (3 10 unit subcut QAM 09/19/23 09/19/23 mL) subcutaneous pen (Lantus Solostar U-100 Insulin) morphine 30 mg tablet,extended 30 mg PO BID 09/19/23 09/19/23 release naloxone 4 mg/actuation nasal spray 1 spray intranasal Q5M PRN opioid 09/19/23 09/19/23 overdose omega-3 acid ethyl esters 1 gram 1 cap PO DAILY 09/19/23 09/19/23 capsule oxycodone 5 mg tablet 5 mg PO Q6H PRN pain 09/19/23 09/19/23 pregabalin 150 mg capsule 150 mg PO BID 09/19/23 09/19/23 Allergies Allergy/AdvReac Type Severity Reaction Status Date / Time No Known Drug Allergies Allergy Verified 06/26/24 05:30 Opioid HPI Opioid Management Most Recent Opioid Data: Last Pain Scale 8 06/26/24, 06:29 Last ED Pain Assessment 06/26/24, 05:50 Last MAR Pain Assessment 06/26/24, 06:29 Review of Systems ROS Status of ROS 10 or more systems reviewed and unremarkable except as noted in history and below [facility] Social History Little interest or pleasure in doing things: not at all Feeling down, depressed, or hopeless: not at all Exam Constitutional Vital Signs, click to edit/add: Last Vital Signs Temp 98.8 F 06/26/24 05:25 Pulse 89 06/26/24 05:25 Resp 18 06/26/24 05:25 BP 117/82 06/26/24 08:30 Pulse Ox 97 06/26/24 09:00 O2 Del Method Room Air 06/26/24 05:25 Common normals: no apparent distress, average body habitus, oriented x3, no limitations, healthy appearing, alert and well nourished [facility] Common normals: normocephalic and head/scalp atraumatic Eye Common normals: EOMs intact bilaterally and conjunctivae normal Respiratory Common normals: normal respiratory effort, no retractions, no use of accessory muscles and clear to auscultation bilaterally Cardio Common normals: regular rate, regular rhythm, S1 normal heart sound and S2 normal heart sound GI Common normals: Normal to inspection, nondistended, normoactive bowel sounds present and soft to palpation Extremity Other: well healed midline incision right knee. Knee enlarged and mod. tender. No warmth or erythema. ROM not tested. Left knee exam is neg Neuro Common normals: oriented x3, CN's II-XII intact bilaterally, moves all extremities and no focal motor deficits Psych Appearance: grossly normal Course Course Hospital Course: Patient's care is signed out to me at change of shift by Dr. Del Castillo who performed the initial evaluation. Patient complained of generally feeling ill. He states he has gotten that way in the past when he had septic arthritis in the right knee. He has had multiple surgeries in the right knee with revisions of his arthroplasty due to infection. He is currently on an unnamed antifungal and an unnamed antibiotic for the last couple months that he is to take for at least another 2 more months. His concern was if he was getting septic arthritis again. His workup has revealed a normal white count and normal CRP and he is not febrile. Venous Dopplers of the right leg also obtained and there is no DVT. X-rays did not reveal any fluid in the joint or other acute pathology. Patient was treated with IV morphine for pain in the ED and is advised outpatient early follow-up with his ID physician and orthopedist. He may return anytime for worsening symptoms. Vital Signs Vital signs: Vital Signs Temperature 98.8 F 06/26/24 05:25 Pulse Rate 89 06/26/24 05:25 Respiratory Rate 18 06/26/24 05:25 Blood Pressure 131/76 06/26/24 05:25 Pulse Oximetry 99 06/26/24 05:25 Oxygen Delivery Method Room Air 06/26/24 05:25 Temperature 98.8 F 06/26/24 05:25 Pulse Rate 89 06/26/24 05:25 Respiratory Rate 18 06/26/24 05:25 Blood Pressure 117/82 06/26/24 08:30 Pulse Oximetry 97 06/26/24 09:00 Oxygen Delivery Method Room Air 06/26/24 05:25 Medical Decision Making MDM Narrative Medical decision making narrative: patient describes many(up to 19 ) different surgeries right knee. septic joint last year. States he waited too long last year. Always has pain of the knee but felt the pain was worse this AM and he feels weak. Left work and came here for evaluation. No fever, tachycardia or other signs at this time to suggest sepsis. labs and xrays ordered. Morphine ordered for pain labs have returned and no findings to support sepsis or septic joint Lab Data Labs: Lab Results 06/26/24 06/26/24 Range/Units 05:34 05:40 WBC 7.9 (4.0-11.0) 10^3/uL RBC 4.98 (4.70-6.10) 10^6/uL Hgb 15.3 (14.0-18.0) g/dL Hct 43.0 (42.0-54.0) % MCV 86.3 (80.0-94.0) fL MCH 30.7 (25.9-34.0) pg MCHC 35.6 H (29.9-35.2) g/dL RDW 13.0 (11.0-15.0) % Plt Count 174 (150-450) 10^3/uL MPV 11.1 (9.5-13.5) fL Neut % (Auto) 57.9 (43.0-75.0) % Lymph % (Auto) 30.6 (20.5-60.0) % [place] % (Auto) 7.8 (1.7-12.0) % Eos % (Auto) 2.7 (0.9-7.0) % Baso % (Auto) 0.6 (0.2-2.0) % Neut # (Auto) 4.6 (1.4-6.5) 10^3/uL Lymph # (Auto) 2.4 (1.2-3.8) 10^3/uL [place] # (Auto) 0.6 (0.3-0.8) 10^3/uL Eos # (Auto) 0.2 (0.0-0.7) 10^3/uL Baso # (Auto) 0.1 (0.0-0.1) 10^3/uL Abs Immat Gran (auto) 0.03 (0.00-0.03) 10^3/uL Imm/Tot Granulo (auto) 0.4 (0.0-0.5) % Sodium 139 (136-145) mmol/L Potassium 3.8 (3.5-5.1) mmol/L Chloride 100 (98-107) mmol/L Carbon Dioxide 27.8 (21.0-32.0) mmol/L Anion Gap 15.0 BUN 12.0 (7.0-18.0) mg/dL Creatinine 0.98 (0.70-1.30) mg/dL Est GFR ( Amer) >60 (>=60 mL/min/1.73m^2) Est GFR (Non-Af Amer) >60 (>=60 mL/min/1.73m^2) BUN/Creatinine Ratio 12.2 Glucose 208 H (74-106) mg/dL Lactate 1.8 (0.4-2.0) mmol/L Calcium 9.1 (8.5-10.1) mg/dL Total Bilirubin 0.3 (0.2-1.0) mg/dL AST 17 (15-37) U/L ALT 34 (16-63) U/L Alkaline Phosphatase 137 H (46-116) U/L C-Reactive Protein <0.50 (<=0.50) mg/dL Total Protein 7.9 (6.4-8.2) g/dL Albumin 3.9 (3.4-5.0) g/dL Globulin 4.0 g/dL Albumin/Globulin Ratio 1.0 Urine Color Lt. yellow (YELLOW) Urine Clarity Clear (CLEAR) Urine pH 6.0 (5.0-9.0) Ur Specific [place] <=1.005 A (1.005-1.025) Urine Protein Negative (NEG/TRACE) mg/dL Urine Glucose (UA) >=1000 A (NEGATIVE) mg/dL Urine Ketones Negative (NEGATIVE) mg/dL Urine Occult Blood Negative (NEGATIVE) Urine Nitrite Negative (NEGATIVE) Urine Bilirubin Negative (NEGATIVE) Urine Urobilinogen 0.2 (0.2-1.0) EU/dL Ur Leukocyte Esterase Negative (NEGATIVE) Urine RBC 0-2 (0-2) #/HPF Urine WBC None seen (NONE SEEN) #/HPF Ur Squamous Epith Cells Rare (NONE/RARE) #/LPF Urine Crystals None seen (None Seen) #/HPF Urine Bacteria None seen (NONE SEEN) #/HPF Urine Casts None seen (NONE SEEN) #/LPF Urine Mucus None seen (NONE SEEN) Ur Culture Indicated? No Discharge Plan Discharge Chief Complaint: Weakness Clinical Impression: Chronic pain of right knee Patient Disposition: Home, Self-Care Time of Disposition Decision: 09:29 Condition: Good Mode of Transportation: Private Vehicle Prescriptions / Home Meds: No Action celecoxib 200 mg capsule 200 mg PO DAILY aspirin 81 mg tablet,delayed release (DR/EC) 81 mg PO BID insulin aspart U-100 [Novolog FlexPen U-100 Insulin] 100 unit/mL (3 mL) insulin pen 10 unit SUBCUT TIDWM omega-3 acid ethyl esters 1 gram capsule 1 cap PO DAILY pregabalin 150 mg capsule 150 mg PO BID dapagliflozin propanediol [Farxiga] 10 mg tablet 10 mg PO DAILY insulin glargine [Lantus Solostar U-100 Insulin] 100 unit/mL (3 mL) insulin pen 10 unit SUBCUT QAM morphine 30 mg tablet extended release 30 mg PO BID naloxone 4 mg/actuation spray,non-aerosol 1 spray INTRANASAL Q5M PRN (Reason: opioid overdose) oxycodone 5 mg tablet 5 mg PO Q6H PRN (Reason: pain) Print Language: Scottish Instructions: Chronic Pain (ED) Additional Instructions: Continue current medications. Follow-up with your infectious disease specialist and orthopedist within a week. Return for worsening symptoms. Referrals: ANDREAS NI [Primary Care Provider, Internal Medicine] - 1 week Discharge Date/Time: 06/26/24 09:36
[2024-06-26 06:14] LABS: Basophils Absolute Auto 0.1 10^3/uL (0.0-0.1); Basophils Percent Auto 0.6 % (0.2-2.0); Eosinophils Absolute Auto 0.2 10^3/uL (0.0-0.7); Eosinophils Percent Auto 2.7 % (0.9-7.0); Hemoglobin 15.3 g/dL (14.0-18.0); Immature Granulocytes Abs Auto 0.03 10^3/uL (0.00-0.03); Immature Granulocytes Pct Auto 0.4 % (0.0-0.5); Lymphocytes Absolute Auto 2.4 10^3/uL (1.2-3.8); Lymphocytes Percent Auto 30.6 % (20.5-60.0); Mean Corpuscular HGB Conc 35.6 g/dL (29.9-35.2); Mean Corpuscular Hemoglobin 30.7 pg (25.9-34.0); Mean Corpuscular Volume 86.3 fL (80.0-94.0); Mean Platelet Volume 11.1 fL (9.5-13.5); Monocytes Absolute Auto 0.6 10^3/uL (0.3-0.8); Monocytes Percent Auto 7.8 % (1.7-12.0); Neutrophils Absolute Auto 4.6 10^3/uL (1.4-6.5); Neutrophils Percent Auto 57.9 % (43.0-75.0); Platelet Count 174 10^3/uL (150-450); Red Blood Count 4.98 10^6/uL (4.70-6.10); White Blood Count 7.9 10^3/uL (4.0-11.0)
[2024-06-26 06:15] LABS: Bilirubin Urine NEGATIVE (NEGATIVE); Blood Urine NEGATIVE (NEGATIVE); Clarity Urine CLEAR (CLEAR); Color Urine LT. YELLOW (YELLOW); Glucose Urine UA >=1000 mg/dL (NEGATIVE); Ketones Urine NEGATIVE (NEGATIVE); Leukocyte Esterase Urine NEGATIVE (NEGATIVE); Nitrite Urine NEGATIVE (NEGATIVE); Protein Urine NEGATIVE (NEG/TRACE); Specific Gravity Urine <=1.005 (1.005-1.025); Urobilinogen Urine 0.2 EU/dL (0.2-1.0)
[2024-06-26 06:22] LABS: Bacteria Urine NONE SEEN #/HPF (NONE SEEN); Cast Seen? NONE SEEN #/LPF (NONE SEEN); Crystals Seen? None Seen #/HPF (None Seen); Mucus Urine NONE SEEN (NONE SEEN); RBC Urine 0-2 #/HPF (0-2); Squamous Epithelial Cell Urine RARE #/LPF (NONE/RARE); Urine Culture Indicated NO; WBC Urine NONE SEEN #/HPF (NONE SEEN)
[2024-06-26 06:27] LABS: Alanine Aminotransferase 34 U/L (16-63); Albumin Level 3.9 g/dL (3.4-5.0); Alkaline Phosphatase 137 U/L (46-116); Aspartate Amino Transferase 17 U/L (15-37); BUN Creatinine Ratio 12.2; Bilirubin Total 0.3 mg/dL (0.2-1.0); C Reactive Protein <0.50 mg/dL (<=0.50); Calcium 9.1 mg/dL (8.5-10.1); Carbon Dioxide 27.8 mmol/L (21.0-32.0); Chloride 100 mmol/L (98-107); Estimated GFR (African America >60 (>=60 mL/min/1.73m^2); Estimated GFR (Non-African Ame >60 (>=60 mL/min/1.73m^2); Glucose 208 mg/dL (74-106); Potassium 3.8 mmol/L (3.5-5.1); Sodium 139 mmol/L (136-145); Total Protein 7.9 g/dL (6.4-8.2)
[2024-06-26] MEDS: MORPHINE SULFATE 4 MG/ML VIAL IV ×2 (06:29→08:54)
[2024-06-26 06:30] LABS: Lactate/Lactic Acid 1.8 mmol/L (0.4-2.0)
[2024-06-26] MEDS: ONDANSETRON PF 4 MG/2 ML VIAL IV (09:00)
== END 2024-06-26 09:36 | disposition home or self-care (01) ==
PROVIDERS: Internal Medicine; Emergency Provider Emergency Medicine; PCP Internal Medicine
DX: M25.561 Pain in right knee (principal); G89.29 Other chronic pain; Z96.651 Presence of right artificial knee joint; E11.9 Type 2 diabetes mellitus without complications; R53.1 Weakness; Z79.4 Long term (current) use of insulin; M79.604 Pain in right leg
CPT/HCPCS: 36415; 73562; 80053; 81001; 83605; 85025; 86140; 93971; 96374; 96375; 96376; 99285; J2270; J2405